=== PATIENT | female | born 1975 | race Caucasian/White ===

== ENCOUNTER 2017-10-26 03:08 | Inpatient (IN) ==
[2017-10-26] MEDS ORDERED: Sod Chloride 0.9% Inj 1,000 ML IV.SIG ONE (03:57)
[2017-10-26] MEDS ORDERED: Morphine Inj 4 MG/ML Vial IV.PUSH ONE ×2 (03:59→05:41)
[2017-10-26 04:37] LABS: Baso # (Auto) 0.1 th/mm3 (0.0-0.2); Baso % (Auto) 0.4 % (0.0-2.0); Eos # (Auto) 0.4 th/mm3 (0.0-0.4); Eos % (Auto) 1.8 % (0.0-4.0); Hematocrit 44.3 % (35.0-46.0); Lymph % (Auto) 14.7 % (9.0-44.0); Mean Corpuscular Hemoglobin 30.5 pg (27.0-34.0); Mean Corpuscular Volume 89.9 fL (80.0-100.0); Mean Platelet Volume 8.5 fL (7.0-11.0); Mono # (Auto) 1.1 th/mm3 (0.0-0.9); Mono % (Auto) 5.5 % (0.0-8.0); Neut # (Auto) 15.7 th/mm3 (1.8-7.7); Neut % (Auto) 77.6 % (16.0-70.0); Platelet Count 377 th/mm3 (150-450); Red Blood Count 4.93 mil/mm3 (4.00-5.30); Red Cell Distribution Width 13.4 % (11.6-17.2); White Blood Count 20.2 th/mm3 (4.0-11.0)
--- NOTE | 2017-10-26 05:00 | XR ---
EXAM DATE: 10/26/2017 4:19 AM EDT AGE/SEX: 42 years / Female INDICATIONS: Abdominal pain for three hours. CLINICAL DATA: This is the patient's initial encounter. Patient reports that signs and symptoms have been present for 1 day and indicates a pain score of 0/10. MEDICAL/SURGICAL HISTORY: Hypertension. None. COMPARISON: No prior exams available for comparison. FINDINGS: A single AP view of the chest demonstrates the lungs to be symmetrically aerated without evidence of mass, infiltrate or effusion. The cardiomediastinal contours are unremarkable. Osseous structures a re intact. CONCLUSION: No acute cardiopulmonary process. Electronically signed by: Jeff Piper MD 10/26/2017 4:59 AM EDT
[2017-10-26 05:05] LABS: Alkaline Phosphatase 56 U/L (45-117); Total Protein 7.4 g/dL (6.4-8.2)
[2017-10-26 05:27] LABS: Alanine Aminotransferase 19 U/L (10-53); Anion Gap 11 meq/L (5-15); Aspartate Aminotransferase 24 U/L (15-37); Blood Urea Nitrogen 12 mg/dL (7-18); Calcium 9.4 mg/dL (8.5-10.1); Carbon Dioxide 27.1 meq/L (21.0-32.0); Chloride 105 meq/L (98-107); Glomerular Filtration Rate 64 mL/min (>89); Glucose,Random 92 mg/dL (74-106); Lipase 130 U/L (73-393); Sodium 143 meq/L (136-145)
[2017-10-26 05:47] LABS: Potassium 4.2 meq/L (3.5-5.1)
--- NOTE | 2017-10-26 05:56 | ED ---
HPI General Chief Complaint: Abdominal Pain Stated Complaint: abd pain Time Seen by Provider: 10/26/17 03:57 Source: patient Mode of arrival: ambulatory Limitations: no limitations History of Present Illness HPI narrative: 42-year-old female presents to the emergency department complaint of severe abdominal pain. Symptoms began this evening just prior to arrival to the emergency department. Patient's been very nauseated upon arrival to the emergency department large episode of emesis of stomach contents no hematemesis or coffee-ground emesis. No diarrhea. No fever chills. Has history of hypertension but no other chronic medical conditions according to the patient except for depression. Patient rates pain 8/10 intensity previously 10/10 in intensity. Patient unable to identify exacerbating or alleviating factors. ate same meal as the patient is asymptomatic. Related Data Home Medications Medication Instructions Recorded Confirmed duloxetine [Cymbalta] 20 mg PO BID 10/26/17 10/26/17 Allergies Allergy/AdvReac Type Severity Reaction Status Date / Time No Known Allergies Allergy Unverified 10/26/17 03:31 Review of Systems ROS: all other systems reviewed are negative [facility] Medical History Medical History Carpal tunnel syndrome (Acute) Patient denies medical problems (Acute) Surgical History Surgical History H/O tubal ligation (Acute) Social History Social History Second Hand Smoke Exposure: Yes Smoking Status: Current every day smoker Tobacco Type: Cigarettes How Often Do You Have a Drink Containing Alcohol: 2 to 3 times a week Recent Out of Country Travel within the Last 8 Weeks: No Substance Abuse Detail Marijuana: Substance Use Status: Active Route Used Substance Abuse: Inhalation Reason for Use: Calm Down and Feels Good Immunization History Tetanus Immunization: >5 Years Hx Influenza Vaccine This Season: No Exam Narrative Exam Narrative: GENERAL: Well-nourished, well-developed patient. SKIN: Focused skin assessment warm/dry. HEAD: Normocephalic. EYES: No scleral icterus. No injection or drainage. NECK: Supple, trachea midline. No JVD or lymphadenopathy. CARDIOVASCULAR: Regular rate and rhythm without murmurs, gallops, or rubs. RESPIRATORY: Breath sounds equal bilaterally. No accessory muscle use. GASTROINTESTINAL: Abdomen soft, reproducible epigastric tenderness to palpation without guarding or rebound, nondistended. MUSCULOSKELETAL: No cyanosis, or edema. BACK: Nontender without obvious deformity. No CVA tenderness. Course Initial Documented Vital Signs Temperature 97.7 F 10/26/17 03:27 Pulse Rate 80 10/26/17 03:27 Respiratory Rate 22 10/26/17 03:27 Blood Pressure 129/76 10/26/17 03:27 Pulse Oximetry 99 10/26/17 03:27 Last Documented Vital Signs Temperature 97.7 F 10/26/17 03:27 Pulse Rate 82 10/26/17 03:31 Respiratory Rate 22 10/26/17 03:27 Blood Pressure 127/76 10/26/17 03:31 Pulse Oximetry 99 10/26/17 03:27 Medical Decision Making MDM Narrative Medical decision making narrative: 42-year-old female with abdominal pain vomiting sudden onset presents for further evaluation history of hypertension placed on conveyor monitor with continuous pulse oximetry IV access obtained specimens collected and sent for resulting and CT imaging study ordered White count 20,000 patient's pain is still persistent after morphine sulfate 4 mg IV nausea has improved after Zofran 4 mg IV Patient given additional liter of normal saline CT abdomen pelvis is consistent with partial small bowel obstruction versus enteritis no evidence for acute appendicitis or other acute findings small amount of free fluid in the pelvis nonspecific. No free air. Labs and imaging results discussed with patient and family at bedside plan for observation admission versus inpatient admission based on patient's response to conservative management Patient's case discussed with on-call medicine physician, Dr Rangel, for admission. Medical Screen Exam Complete: Yes Emergency Medical Condition: Yes Lab Data Lab results reviewed: Yes I reviewed the patient's lab results. Result diagrams: 10/26/17 04:00 10/26/17 04:00 Lab Results 10/26/17 10/26/17 Range/Units 04:00 04:00 WBC 20.2 H (4.0-11.0) th/mm3 RBC 4.93 (4.00-5.30) mil/mm3 Hgb 15.0 (11.6-15.3) gm/dL Hct 44.3 (35.0-46.0) % MCV 89.9 (80.0-100.0) fL MCH 30.5 (27.0-34.0) pg MCHC 34.0 (32.0-36.0) % RDW 13.4 (11.6-17.2) % Plt Count 377 (150-450) th/mm3 MPV 8.5 (7.0-11.0) fL Neut % (Auto) 77.6 H (16.0-70.0) % Lymph % (Auto) 14.7 (9.0-44.0) % [place] % (Auto) 5.5 (0.0-8.0) % Eos % (Auto) 1.8 (0.0-4.0) % Baso % (Auto) 0.4 (0.0-2.0) % Neut # (Auto) 15.7 H (1.8-7.7) th/mm3 Lymph # (Auto) 3.0 (1.0-4.8) th/mm3 [place] # (Auto) 1.1 H (0.0-0.9) th/mm3 Eos # (Auto) 0.4 (0.0-0.4) th/mm3 Baso # (Auto) 0.1 (0.0-0.2) th/mm3 WBC Differential . Differential Comment Auto diff final Sodium 143 (136-145) meq/L Potassium 4.2 (3.5-5.1) meq/L Chloride 105 (98-107) meq/L Carbon Dioxide 27.1 (21.0-32.0) meq/L Anion Gap 11 (5-15) meq/L BUN 12 (7-18) mg/dL Creatinine 0.95 (0.50-1.00) mg/dL Estimated GFR 64 L (>89) mL/min Random Glucose 92 (74-106) mg/dL Calcium 9.4 (8.5-10.1) mg/dL Total Bilirubin 0.4 (0.2-1.0) mg/dL AST 24 (15-37) U/L ALT 19 (10-53) U/L Alkaline Phosphatase 56 (45-117) U/L Troponin I Less than 0.02 L (0.02-0.05) ng/mL Total Protein 7.4 (6.4-8.2) g/dL Albumin 4.0 (3.4-5.0) g/dL Lipase 130 (73-393) U/L Imaging Data Radiologist's impression: Abdomen/Pelvis CT 10/26/17 03:57 CONCLUSION: 1. There is some fluid distention of the more proximal small bowel loops with a long segment transition in the region of the right and central abdomen. No discrete mass lesion. Findings could represent a focal enteritis with partial small bowel obstruction. 2. Small amount of free fluid in the deep pelvis. Again, nonspecific and could be related to the phase of menses. 3. Appendix is clearly identified and is radiographically normal Chest X-Ray 10/26/17 03:57 CONCLUSION: No acute cardiopulmonary process. Discharge Plan Discharge Disposition Patient Disposition: 30 Still Patient Discharge Condition Condition: Stable Discharge Details Diagnosis: Partial small bowel obstruction, Enteritis Physicians Team ED Provider: Clara Gage Rxs /Orders / Referrals /Forms Prescriptions: No Action duloxetine [Cymbalta] 20 mg Capsule,Delayed Release(Dr/Ec) 20 mg PO BID RF: 0 Status ED Status: With Doctor
--- NOTE | 2017-10-26 06:18 | CT ---
EXAM DATE: 10/26/2017 6:07 AM EDT AGE/SEX: 42 years / Female INDICATIONS: Mid abdominal pain. CLINICAL DATA: This is the patient's initial encounter. Patient reports that signs and symptoms have been present for 1 day and indicates a pain score of 7/10. MEDICAL/SURGICAL HISTORY: None. Tubal ligation. ORAL CONTRAST: No oral contrast ingested. RADIATION DOSE: 10.76 CTDI (mGy) COMPARISON: No prior exams available for comparison. TECHNIQUE: Multiple contiguous axial images were obtained through the abdomen and pelvis following b olus infusion of 95 ml Omnipaque 350 (iohexol) nonionic water-soluble contrast as a single exam dos e. No oral contrast ingested. Using automated exposure control and adjustment of the mA and/or kV ac cording to patient size, radiation dose was kept as low as reasonably achievable to obtain optimal di agnostic quality images. DICOM format image data is available electronically for review and comparis on. FINDINGS: Lower Lungs: The visualized lower lungs are clear. Liver: The liver has a homogeneous density without space-occupying lesion. There is no dilation of th e biliary tree. Spleen: Homogeneous density without enlargement. Pancreas: Unremarkable without mass or calcification. Kidneys: Normal in size and shape. No evidence of mass or hydronephrosis. Adrenal Glands: Unremarkable. Aorta: The aorta and proximal iliac vessels are grossly unremarkable without aneurysmal dilation. Bowel/Mesentery: There is some fluid distention of more proximal small bowel loops with a regional t ransition in the right midabdomen. Bowel distal to this area is completely decompressed. A few divert icula in the descending and sigmoid portions of the colon without diverticulitis. Small amount of janna e fluid in the deep pelvis, right and left. Appendix is identified and is radiographically normal. Abdominal Wall: Intact. Retroperitoneum: No evidence of adenopathy in the retrocrural, para-aortic, or deep pelvic regions. Bladder: Contours are smooth. Reproductive Organs: Some prominence of the endometrial stripe which could be related to the phase o f menses Inguinal: The inguinal region is unremarkable without evidence of adenopathy. Bony Structures: Unremarkable. Post Contrast: No abnormal areas of enhancement seen. CONCLUSION: 1. There is some fluid distention of the more proximal small bowel loops with a long segment transit ion in the region of the right and central abdomen. No discrete mass lesion. Findings could represent a focal enteritis with partial small bowel obstruction. 2. Small amount of free fluid in the deep pelvis. Again, nonspecific and could be related to the pha se of menses. 3. Appendix is clearly identified and is radiographically normal Electronically signed by: Jeff Piper MD 10/26/2017 6:16 AM EDT
[2017-10-26] MEDS ORDERED: Pantoprazole Inj 40 MG Vial IV.PUSH ONE (06:24)
[2017-10-26] MEDS ORDERED: Sod Chloride 0.9% Inj 1,000 ML IV.SIG SCH (06:30)
[2017-10-26] MEDS ORDERED: Bisacodyl 10 MG Supp RECTAL PRN (06:43)
[2017-10-26] MEDS: Sod Chloride 0.9% Inj 1,000 ML IV.CONT SCH ×2 (06:50→16:29)
[2017-10-26] MEDS: Piperacil/Tazo 4.5 GM Premix 4.5 GM/100 ML BAG IV.SIG SCH ×2 (06:50→12:16)
[2017-10-26] MEDS ORDERED: Morphine Inj 4 MG/ML Vial IV.PUSH PRN (07:00)
[2017-10-26 08:15] LABS: Amorphous Sediment,Urine Moderate /hpf; Bacteria,Urine Few /hpf; Bilirubin,Urine Negative (Negative); Clarity,Urine Cloudy (Clear); Color,Urine Yellow (Yellw/Straw); Glucose,Urine (UA) Negative (Negative); Leukocyte Esterase,Urine Negative (Negative); Nitrite,Urine Negative (Negative); Specific Gravity,Urine 1.049 (1.002-1.035); Squamous Epithelial Cell,Urine 2 /hpf (0-5)
[2017-10-26] MEDS ORDERED: Naloxone Inj 0.4 MG/ML Vial IV.PUSH PRN (09:20)
--- NOTE | 2017-10-26 09:32 | P.HPIM ---
History of Present Illness Primary Care Physician: Pablito Arora History of Present Illness: 42-year-old female who presents with constant nonradiating epigastric pain nausea and nonbloody rlx-svaora-nxxian vomiting since 1 AM she denies any chest pain, shortness of breath, fevers, lightheadedness, dizziness, dysuria. She says she has felt cold this morning however. Inpatient Certification: I certify that the inpatient services were ordered in accordance with Medicare regulations governing the order. This includes certification that hospital inpatient services are reasonable and necessary and in the case of services not specified as inpatient-only under 42 CFR 419.22(n), that they are appropriately provided as inpatient services in accordance to with the 2-midnight benchmark under 43 CFR 412.3(e) Estimated Total Length of Stay (Days): 2 Plans for Post Hospital Care: Not yet determined Review of Systems Patient denies SI. All other systems reviewed negative except as stated in HPI PMFSH - History History Provided By: Patient - Medical History Medical History: Medical History (Last Reviewed 10/26/17 @ 05:57 by Clara Gage MD) Carpal tunnel syndrome Patient denies medical problems - Surgical History Surgical History: Surgical History (Last Reviewed 10/26/17 @ 05:57 by Clara Gage MD) H/O tubal ligation - Family History Family History: Family History (Last Updated 10/26/17 @ 09:28 by Gigi Hager MD) Father Cancer Mother Healthy adult - Tobacco History Second Hand Smoke Exposure: Yes Tobacco Use In Past 30 Days: Yes Smoking Status: Current every day smoker Tobacco Type: Cigarettes - Alcohol History How Often Do You Have a Drink Containing Alcohol: 2 to 3 times a week - Substance Use Type Marijuana Status: Active Route Used: Inhalation Reason for Use: Calm Down, Feels Good - Travel History Recent Travel Out of the Country Within the Last 8 Weeks: No - Immunization History Tetanus Immunization: >5 Years Hx Influenza Vaccine This Season: No Medications and Allergies Active Medications: Active Medications Hydrocodone Bitart/Acetaminophen ([place] 5/325) 1 tab PO Q4H PRN PRN Reason: PAIN SCALE 3 TO 5 Hydrocodone Bitart/Acetaminophen ([place] 7.5/325) 1 tab PO Q4H PRN PRN Reason: PAIN SCALE 6 TO 10 Al Hydroxide/Mg Hydroxide (Milk Of Chapis Liq) 30 ml PO Q12H PRN PRN Reason: Mild Constipation Bisacodyl (Dulcolax Supp) 10 mg RECTAL DAILY PRN PRN Reason: SEVERE CONSITIPATION Sodium Chloride (Ns Inj) 1,000 mls @ 0 mls/hr IV.SIG BOLUS NICK Sodium Chloride (Ns Inj) 1,000 mls @ 100 mls/hr IV.CONT .Q10H NICK Last Admin: 10/26/17 06:50 Dose: 100 mls/hr Piperacillin/Tazobactam/Dextrose (Zosyn 4.5 Gm Premix) 4.5 gm in 100 mls @ 200 mls/hr IV.SIG Q6H NICK Last Infusion: 10/26/17 07:20 Dose: Infused Lactulose (Lactulose Liq) 30 ml PO DAILY PRN PRN Reason: SEVERE CONSITIPATION Metoclopramide HCl (Reglan Inj) 5 mg IV.PUSH Q6HR PRN; Protocol PRN Reason: NAUSEA OR VOMITING Last Admin: 10/26/17 07:12 Dose: 5 mg Morphine Sulfate (Morphine Inj) 2 mg IV.PUSH Q3H PRN PRN Reason: PAIN 6-10;IF UNABLE TO TAKE PO Morphine Sulfate (Morphine Inj) 2 mg IV.PUSH Q1H PRN PRN Reason: Pain Scale 7-10 (Intractable) Naloxone HCl (Narcan Inj) 0.4 mg IV.PUSH UNSCH PRN PRN Reason: SEE LABEL COMMENTS Ondansetron HCl (Zofran Inj) 4 mg IV.PUSH Q6H PRN PRN Reason: NAUSEA OR VOMITING Senna/Docusate Sodium (Darlene-Colace) 1 tab PO BID [facility] Sennosides (Senokot) 17.2 mg PO Q12H PRN PRN Reason: Moderate Constipation Sodium Chloride (Ns Flush) 2 ml IV.FLUSH PRN PRN PRN Reason: FLUSH AFTER USING IV ACCESS Allergies Allergy/AdvReac Type Severity Reaction Status Date / Time No Known Allergies Allergy Unverified 10/26/17 03:31 Home Medications Medication Instructions Recorded Confirmed Type duloxetine [Cymbalta] 20 mg PO BID 10/26/17 10/26/17 History Exam Vital signs: Vital Signs 10/26/17 03:27 10/26/17 03:31 10/26/17 06:47 Temperature 97.7 F Pulse Rate 80 82 Respiratory Rate 22 19 Blood Pressure 129/76 127/76 147/78 H Pulse Oximetry 99 Intake & Output 10/25/17 10/26/17 10/26/17 18:59 06:59 18:59 Intake Total 0 / 0 1100 / 1100 Balance 0 / 0 1100 / 1100 Weight 107.501 kg Intake: IV 0 / 0 1100 / 1100 Zosyn 4.5 GM Premix 4.5 gm In 100 / 100 100 ml @ 200 mls/hr IV.SIG Q6H NICK Rx#:[id number] NS Inj 1,000 ML @ Wide Open IV. 0 / 0 1000 / 1000 SIG BOLUS ONE Rx#:[id number] Results - Labs CBC & Chem 7: 10/26/17 04:00 10/26/17 04:00 Labs: Short CBC 10/26/17 Range/Units 04:00 WBC 20.2 H (4.0-11.0) th/mm3 Hgb 15.0 (11.6-15.3) gm/dL Hct 44.3 (35.0-46.0) % Plt Count 377 (150-450) th/mm3 BMP 10/26/17 04:00 Sodium 143 Potassium 4.2 Chloride 105 Carbon Dioxide 27.1 BUN 12 Creatinine 0.95 Calcium 9.4 Cardiac Enzymes 10/26/17 Range/Units 04:00 Troponin I Less than 0.02 L (0.02-0.05) ng/mL Liver Function 10/26/17 Range/Units 04:00 Total Bilirubin 0.4 (0.2-1.0) mg/dL AST 24 (15-37) U/L ALT 19 (10-53) U/L Alkaline Phosphatase 56 (45-117) U/L Albumin 4.0 (3.4-5.0) g/dL Urine 10/26/17 Range/Units 07:44 Urine Color Yellow (Yellw/Straw) Urine Clarity Cloudy H (Clear) Urine pH 7.0 (5.0-8.5) Ur Specific [place] 1.049 H (1.002-1.035) Urine Protein Negative (Neg-Trace) mg/dL Urine Glucose (UA) Negative (Negative) mg/dL - Imaging Impressions Abdomen/Pelvis CT 10/26/17 03:57 CONCLUSION: 1. There is some fluid distention of the more proximal small bowel loops with a long segment transition in the region of the right and central abdomen. No discrete mass lesion. Findings could represent a focal enteritis with partial small bowel obstruction. 2. Small amount of free fluid in the deep pelvis. Again, nonspecific and could be related to the phase of menses. 3. Appendix is clearly identified and is radiographically normal Chest X-Ray 10/26/17 03:57 CONCLUSION: No acute cardiopulmonary process. Caprini VTE Risk Assessment Caprini VTE Risk Assessment: No/Low Risk (score <= 1) Caprini Risk Assessment Model: Point Value = 1 Point Value = 2 Point Value = 3 Point Value = 5 Age 41-60 Minor surgery BMI > 25 kg/m2 Swollen legs Varicose veins or History of unexplained or recurrent spontaneous Oral contraceptives or hormone replacement Sepsis (< 1 month) Serious lung disease, including pneumonia (< 1 month) Abnormal pulmonary function Acute myocardial infarction Congestive heart failure (< 1 month) History of inflammatory bowel disease Medical patient at bed rest Age 61-74 Arthroscopic surgery Major open surgery (> 45 min) Laparoscopic surgery (> 45 min) Malignancy Confined to bed (> 72 hours) Immobilizing plaster cast Central venous access Age >= 75 History of VTE Family history of VTE Factor V Leiden Prothrombin [id number] Lupus anticoagulant Anticardiolipin antibodies Elevated serum homocysteine Heparin-induced thrombocytopenia Other congenital or acquired thrombophilia Stroke (< 1 month) Elective arthroplasty Hip, pelvis, or leg fracture Acute spinal cord injury (< 1 month) Prophylaxis Regimen: Total Risk Factor Score Risk Level Prophylaxis Regimen 0-1 Low Early ambulation 2 Moderate Order ONE of the following: *Sequential Compression Device (SCD) *Heparin 5000 units SQ BID 3-4 Higher Order ONE of the following medications: *Heparin 5000 units SQ TID *Enoxaparin/Lovenox 40 mg SQ daily (WT < 150 kg, CrCl > 30 mL/min) *Enoxaparin/Lovenox 30 mg SQ daily (WT < 150 kg, CrCl > 10-29 mL/min) *Enoxaparin/Lovenox 30 mg SQ BID (WT < 150 kg, CrCl > 30 mL/min) AND/OR *Sequential Compression Device (SCD) 5 or more Highest Order ONE of the following medications: *Heparin 5000 units SQ TID (Preferred with Epidurals) *Enoxaparin/Lovenox 40 mg SQ daily (WT < 150 kg, CrCl > 30 mL/min) *Enoxaparin/Lovenox 30 mg SQ daily (WT < 150 kg, CrCl > 10-29 mL/min) *Enoxaparin/Lovenox 30 mg SQ BID (WT < 150 kg, CrCl > 30 mL/min) AND *Sequential Compression Device (SCD) Assessment and Plan - Plan //Gastroenteritis //Possible partial small bowel obstruction. -With leukocytosis of 20, epigastric pain. Lipase within normal limits. = Troponin 1 negative. = This is unlikely cardiac but will trend troponins. = CT abdomen personally interpreted shows fluid distention of the more proximal small bowel loops with long segment transition in the region of the right and central abdomen. Could represent a focal enteritis with partial small bowel obstruction. //Tobacco abuse. Cessation counseling provided. Discussed Condition With: Patient, nurse
[2017-10-26] MEDS: Senna/Docusate Sodium 8.6/50 MG Tablet PO SCH ×2 (09:35→20:01)
[2017-10-26] MEDS: Morphine Inj 4 MG/ML Vial IV.PUSH PRN ×4 (09:35→15:29)
[2017-10-26 10:17] LABS: Amphetamine Screen,Urine Neg (Neg); Barbiturate Screen,Urine Neg (Neg); Cannabinoid Screen,Urine Pos (Neg); Cocaine Screen,Urine Neg (Neg)
[2017-10-26 10:40] LABS: Opiate Screen,Urine Pos (Neg)
--- NOTE | 2017-10-26 13:14 | ECG ---
Date Performed: 10/26/2017 Time Performed: 06:22:39 PTAGE: 42 years EKG: Sinus rhythm NORMAL ECG NO PREVIOUS TRACING DOCTOR: Asaf Pimentel Interpretating Date/Time 10/26/2017 13:10:28
--- NOTE | 2017-10-26 15:20 | MB ---
cc: Parveen Hahn MD DATE: 10/26/2017 REQUESTING PHYSICIAN: Dr. Gigi Hager. REASON FOR CONSULTATION: Enteritis, possible SBO. HISTORY OF PRESENT ILLNESS: The patient is a 42-year-old female who was visiting [facility] for her anniversary when she developed severe diffuse abdominal pain and vomiting at 1 a.m. this morning. She presented to the emergency department and underwent evaluation. CT scan did show areas of dilated small bowel as well as thickening as well as a possibility of a transition point. The patient did have leukocytosis of 20,000. Currently, the patient has resolution of her vomiting. She does not have an NG tube. She complains of diffuse, crampy abdominal pain. This is nonspecific. The pain does not radiate or associated with any symptoms. She has no nausea, vomiting, or diarrhea at this time. She has not had diarrhea previously. She denies fever, chills, or night sweats. She never had pain like this prior. She ate some abnormal food for her, but nothing that she considered high risk of an infection. She has no other sick contacts, and her who is traveling with has not been sick. REVIEW OF SYSTEMS: A 12-point review of systems is conducted with the patient and is negative except for the pertinent positives mentioned above in history of present illness. PAST MEDICAL HISTORY: None. PAST SURGICAL HISTORY: 1. Carpal tunnel surgery. 2. Tubal ligation. ALLERGIES: NO KNOWN DRUG ALLERGIES. MEDICATIONS: No home medications. FAMILY HISTORY: Reviewed, noncontributory to the process. SOCIAL HISTORY: The patient does smoke cigarettes. She does occasionally use alcohol and marijuana. PHYSICAL EXAMINATION: VITAL SIGNS: Temperature 97.2 degrees, pulse 54, blood pressure 121/60. GENERAL: The patient is a well-developed, well-nourished, female, in no acute distress. HEENT: Head is normocephalic, atraumatic. Pupils are round, reactive to light. Sclerae are anicteric. Oral cavity is clear. NECK: Supple. No JVD. LUNGS: Breath sounds present bilaterally, nonlabored breathing pattern. HEART: Regular rate and rhythm. No murmurs. ABDOMEN: Minimally distended and has normal bowel sounds. No organomegaly. No ascites. No hernias. No surgical scars. BACK: No CVA tenderness. EXTREMITIES: No clubbing, cyanosis, or edema. NEUROLOGIC: The patient is alert and oriented x3. Nonfocal peripheral exam. Cranial nerves 2-12 are grossly intact. Mood, judgment, and insight are intact. LABORATORY VALUES: White blood cell count is 20,000. Liver function tests are within normal limits. Urinalysis shows few bacteria. IMAGING: CT scan shows a possible ileus versus small bowel obstruction and possible enteritis. ASSESSMENT AND PLAN: The patient is a 42-year-old female with abdominal pain and vomiting. Clinically, I feel the patient could have a low-grade partial bowel obstruction, which is aggravated by her diet versus a possible intoxication or enteric infection from food exposure. I do favor likely a gastroenteritis, either viral, bacterial, or toxin exposure. I discussed this with the patient and recommend clear liquids, IV fluids, pain and nausea medicines as needed, as well as continued observation for 24 hours minimum. The patient will need stool studies if she develops diarrhea. We will change the patient to Cipro and Flagyl and may need discharge home with Cipro and Flagyl prescription if she improves to treat any potential infection empirically. If the patient has worsening symptoms, recurrent nausea or vomiting, if it is bilious, she will need an NG tube. Thank you very much for this consultation. We will follow along with the patient. Parveen Hahn MD AWG/aria , 02:02 PM , 02:12 PM
[2017-10-26] MEDS: Ciprofloxacin 400 MG/200 ML 400 MG/200 ML PIGGYBACK IV.SIG SCH (15:22)
--- NOTE | 2017-10-26 20:30 | ECG ---
Date Performed: 10/26/2017 Time Performed: 10:09:42 PTAGE: 42 years EKG: Sinus rhythm NORMAL ECG PREVIOUS TRACING : 10/26/2017 06.22 Since the previous tracing, no significant change noted DOCTOR: Diana Partida Interpretating Date/Time 10/26/2017 20:29:29
[2017-10-27] MEDS: Ciprofloxacin 400 MG/200 ML 400 MG/200 ML PIGGYBACK IV.SIG SCH ×2 (02:21→15:09)
[2017-10-27] MEDS: Sod Chloride 0.9% Inj 1,000 ML IV.CONT SCH ×2 (02:27→16:36)
[2017-10-27 05:53] LABS: Alanine Aminotransferase 14 U/L (10-53); Albumin 3.1 g/dL (3.4-5.0); Alkaline Phosphatase 48 U/L (45-117); Anion Gap 8 meq/L (5-15); Aspartate Aminotransferase 14 U/L (15-37); Blood Urea Nitrogen 8 mg/dL (7-18); Carbon Dioxide 25.2 meq/L (21.0-32.0); Chloride 110 meq/L (98-107); Glomerular Filtration Rate 87 mL/min (>89); Glucose,Random 99 mg/dL (74-106); Potassium 3.7 meq/L (3.5-5.1); Sodium 143 meq/L (136-145); Total Protein 5.8 g/dL (6.4-8.2)
[2017-10-27 07:01] LABS: Baso % (Auto) 0.3 % (0.0-2.0); Eos # (Auto) 0.3 th/mm3 (0.0-0.4); Eos % (Auto) 2.3 % (0.0-4.0); Hematocrit 38.5 % (35.0-46.0); Hemoglobin 12.5 gm/dL (11.6-15.3); Lymph # (Auto) 3.7 th/mm3 (1.0-4.8); Lymph % (Auto) 29.5 % (9.0-44.0); Mean Corpuscular HGB Conc 32.6 % (32.0-36.0); Mean Corpuscular Hemoglobin 30.7 pg (27.0-34.0); Mean Corpuscular Volume 94.2 fL (80.0-100.0); Mean Platelet Volume 8.3 fL (7.0-11.0); Mono # (Auto) 0.9 th/mm3 (0.0-0.9); Mono % (Auto) 7.4 % (0.0-8.0); Neut # (Auto) 7.6 th/mm3 (1.8-7.7); Neut % (Auto) 60.5 % (16.0-70.0); Platelet Count 297 th/mm3 (150-450); Red Blood Count 4.09 mil/mm3 (4.00-5.30); Red Cell Distribution Width 13.5 % (11.6-17.2); White Blood Count 12.5 th/mm3 (4.0-11.0)
[2017-10-27] MEDS: Senna/Docusate Sodium 8.6/50 MG Tablet PO SCH (09:06)
--- NOTE | 2017-10-27 11:24 | P.PNGS ---
Subjective Interval history: Resting in bed coloring Feeling better; Wants to eat; at the bedside Physical Exam Vital signs: Vital Signs 10/26/17 12:00 10/26/17 15:02 10/26/17 20:00 Temperature 97.2 F L 98.0 F 98.2 F Pulse Rate 54 L 65 77 Respiratory Rate 18 19 18 Blood Pressure 121/60 118/80 109/60 Pulse Oximetry 98 97 99 10/27/17 00:00 10/27/17 04:00 10/27/17 08:00 Temperature 97.7 F 98 F 98.1 F Pulse Rate 68 65 68 Respiratory Rate 18 18 18 Blood Pressure 130/63 110/67 138/81 Pulse Oximetry 99 97 99 Intake & Output 10/26/17 10/27/17 10/27/17 18:59 06:59 18:59 Intake Total 4200 / 4200 300 / 300 Balance 4200 / 4200 300 / 300 Intake: IV 3600 / 3600 300 / 300 NS Inj 1,000 ML @ 100 mls/hr IV 2100 / 2100 .CONT .Q10H NICK Rx#:[id number] Cipro 400 MG/200 ML Inj 400 mg 200 / 200 200 / 200 In 200 ml @ 200 mls/hr IV.SIG Q12H NICK Rx#:[id number] Zosyn 4.5 GM Premix 4.5 gm In 200 / 200 100 ml @ 200 mls/hr IV.SIG Q6H NICK Rx#:[id number] NS Inj 1,000 ML @ Wide Open IV. 1000 / 1000 SIG BOLUS ONE Rx#:[id number] Flagyl 500 MG Inj 100 ML @ 100 100 / 100 100 / 100 mls/hr IV.SIG Q8H NICK Rx#: [id number] Oral 600 / 600 Other: # Voids 2 Date of Last Bowel Movement 10/25/17 10/25/17 10/27/17 Narrative: Alert and awake Cardio: RRR Resp: CTAB Abd: soft non tender Assessment and Plan - Assessment (1) Enteritis Code(s): K52.9 - Noninfective gastroenteritis and colitis, unspecified Status : Acute Plan: 42 year old female with abdominal pain; enteritis vs ileus vs SBO -Favor enteritis at this time -Symptoms resolved -+BM -Pain now resolved -Advance to regular diet---encourage small more frequent bland meals for the next few days -Discussed with ANGELICA Goldstein and BASIA Sanchez - Attending Attestation The exam, history, and the medical decision-making described in the above note were completed with the assistance of the mid-level provider. I reviewed and agree with the findings presented. I attest that I had a [id number] encounter with the patient on the same day, and personally performed and documented my assessment and findings in the medical record. 42yo female with likely gastroenteritis, improved overnight no SBO can DC from surgery standpoint rec ABX for 1-2 weeks
--- NOTE | 2017-10-27 11:48 | P.PN ---
Subjective Interval history: Patient seen with at bedside reports feeling much better had formed BM this AM no longer having N/V or abd pain Physical Exam Vital signs: Vital Signs 10/26/17 12:00 10/26/17 15:02 10/26/17 20:00 Temperature 97.2 F L 98.0 F 98.2 F Pulse Rate 54 L 65 77 Respiratory Rate 18 19 18 Blood Pressure 121/60 118/80 109/60 Pulse Oximetry 98 97 99 10/27/17 00:00 10/27/17 04:00 10/27/17 08:00 Temperature 97.7 F 98 F 98.1 F Pulse Rate 68 65 68 Respiratory Rate 18 18 18 Blood Pressure 130/63 110/67 138/81 Pulse Oximetry 99 97 99 Intake & Output 10/26/17 10/27/17 10/27/17 18:59 06:59 18:59 Intake Total 4200 / 4200 300 / 300 Balance 4200 / 4200 300 / 300 Intake: IV 3600 / 3600 300 / 300 NS Inj 1,000 ML @ 100 mls/hr IV 2100 / 2100 .CONT .Q10H NICK Rx#:[id number] Cipro 400 MG/200 ML Inj 400 mg 200 / 200 200 / 200 In 200 ml @ 200 mls/hr IV.SIG Q12H NICK Rx#:[id number] Zosyn 4.5 GM Premix 4.5 gm In 200 / 200 100 ml @ 200 mls/hr IV.SIG Q6H NICK Rx#:[id number] NS Inj 1,000 ML @ Wide Open IV. 1000 / 1000 SIG BOLUS ONE Rx#:[id number] Flagyl 500 MG Inj 100 ML @ 100 100 / 100 100 / 100 mls/hr IV.SIG Q8H NICK Rx#: [id number] Oral 600 / 600 Other: # Voids 2 Date of Last Bowel Movement 10/25/17 10/25/17 10/27/17 Narrative: GENERAL: This is a well-nourished, well-developed patient, in no apparent distress. CARDIOVASCULAR: Regular rate and rhythm RESPIRATORY: Clear to auscultation. Breath sounds equal bilaterally. GASTROINTESTINAL: Abdomen soft, non-tender, nondistended. Normal active bowel sounds MUSCULOSKELETAL: Extremities without clubbing, cyanosis, or edema. NEURO: Alert & Oriented x4 to person, place, time, situation. Moves all ext x4 Results - Labs CBC & Chem 7: 10/27/17 03:58 10/27/17 03:58 Laboratory Results - last 24 hr 10/26/17 10/26/17 10/26/17 10:19 18:02 23:55 WBC RBC Hgb Hct MCV MCH MCHC RDW Plt Count MPV Neut % (Auto) Lymph % (Auto) [place] % (Auto) Eos % (Auto) Baso % (Auto) Neut # (Auto) Lymph # (Auto) [place] # (Auto) Eos # (Auto) Baso # (Auto) WBC Differential Differential Comment Hematology Comments Sodium Potassium Chloride Carbon Dioxide Anion Gap BUN Creatinine Estimated GFR Random Glucose Calcium Total Bilirubin AST ALT Alkaline Phosphatase Troponin I Less than 0.02 L Less than 0.02 L Total Protein Albumin Beta HCG, Qual Less than 1.0 10/27/17 10/27/17 03:58 03:58 WBC 12.5 H RBC 4.09 Hgb 12.5 D Hct 38.5 MCV 94.2 D MCH 30.7 MCHC 32.6 RDW 13.5 Plt Count 297 MPV 8.3 Neut % (Auto) 60.5 Lymph % (Auto) 29.5 [place] % (Auto) 7.4 Eos % (Auto) 2.3 Baso % (Auto) 0.3 Neut # (Auto) 7.6 Lymph # (Auto) 3.7 [place] # (Auto) 0.9 Eos # (Auto) 0.3 Baso # (Auto) 0.0 WBC Differential . Differential Comment Auto diff final Hematology Comments Sodium 143 Potassium 3.7 Chloride 110 H Carbon Dioxide 25.2 Anion Gap 8 BUN 8 Creatinine 0.73 Estimated GFR 87 L Random Glucose 99 Calcium 8.0 L D Total Bilirubin 0.4 AST 14 L ALT 14 Alkaline Phosphatase 48 Troponin I Total Protein 5.8 L D Albumin 3.1 L D Beta HCG, Qual Assessment and Plan - Plan //Gastroenteritis //Possible partial small bowel obstruction. -With leukocytosis of 20 on admission -> 12.5 (10/27) = Troponin 3 negative. = CT abdomen shows fluid distention of the more proximal small bowel loops with long segment transition in the region of the right and central abdomen. Could represent a focal enteritis with partial small bowel obstruction. = general surgery consulted, appreciate assistance. Discussed case with Renetta STROUD cleared for DC later today if patient able to tolerate PO intake //Tobacco abuse. Cessation counseling provided. Case discussed with supervising physician Dr. Morales
--- NOTE | 2017-10-27 13:26 | ECG ---
Date Performed: 10/26/2017 Time Performed: 21:26:08 PTAGE: 42 years EKG: Sinus rhythm NORMAL ECG PREVIOUS TRACING : 10/26/2017 10.09 Since the previous tracing, no significant change noted DOCTOR: Diana Partida Interpretating Date/Time 10/27/2017 13:24:51
--- NOTE | 2017-10-27 14:49 | P.DS ---
<Oma Simpson W - Last Filed: 10/27/17 14:46> Date of admission: 10/26/17 06:45 Primary care physician: Pablito Arora Attending physician on discharge: Ousmane Morales Anticipated date of discharge: 10/27/17 Brief History from admission: 42-year-old female who presents with constant nonradiating epigastric pain nausea and nonbloody [id number] vomiting since 1 AM she denies any chest pain, shortness of breath, fevers, lightheadedness, dizziness, dysuria. She says she has felt cold this morning however. DS: Diagnosis - Discharge Diagnosis (1) Partial small bowel obstruction Status: Acute (2) Enteritis Status: Acute DS: Medications - Discharge Medications Prescriptions: ciprofloxacin HCl [Cipro] 500 mg PO BID 7 Days #14 tab metronidazole [Flagyl] 500 mg PO TID 7 Days #21 tab ondansetron HCl [Zofran] 4 mg PO Q6-8H PRN #10 tab PRN Reason: Nausea And Vomiting DS: Summary Hospital Course: //Gastroenteritis //Possible partial small bowel obstruction. -With leukocytosis of 20 on admission -> 12.5 (10/27) = Troponin 3 negative. = CT abdomen shows fluid distention of the more proximal small bowel loops with long segment transition in the region of the right and central abdomen. Could represent a focal enteritis with partial small bowel obstruction. = general surgery consulted, appreciate assistance. Discussed case with Renetta STROUD cleared for DC later today if patient able to tolerate PO intake = patient expresses that she does not want to stay in the hospital any longer, asking to be DC'd. Patient to follow up with PCP in [place] //Tobacco abuse. Cessation counseling provided. Case discussed with supervising physician Dr. Morales - Time Spent with Patient Total time spent providing and/or coordinating discharge services: Greater than 30 minutes - Quality: VTE Deep Vein Thrombosis/Pulmonary Embolism Present on Admission: No Exam Vital signs: Vital Signs 10/26/17 15:02 10/26/17 20:00 10/27/17 00:00 Temperature 98.0 F 98.2 F 97.7 F Pulse Rate 65 77 68 Respiratory Rate 19 18 18 Blood Pressure 118/80 109/60 130/63 Pulse Oximetry 97 99 99 10/27/17 04:00 10/27/17 08:00 10/27/17 12:00 Temperature 98 F 98.1 F 98.4 F Pulse Rate 65 68 62 Respiratory Rate 18 18 18 Blood Pressure 110/67 138/81 117/65 Pulse Oximetry 97 99 98 Intake & Output 10/26/17 10/27/17 10/27/17 18:59 06:59 18:59 Intake Total 4200 / 4200 300 / 300 100 / 100 Balance 4200 / 4200 300 / 300 100 / 100 Intake: IV 3600 / 3600 300 / 300 100 / 100 NS Inj 1,000 ML @ 100 mls/hr IV 2100 / 2100 .CONT .Q10H NICK Rx#:[id number] Cipro 400 MG/200 ML Inj 400 mg 200 / 200 200 / 200 In 200 ml @ 200 mls/hr IV.SIG Q12H NICK Rx#:[id number] Zosyn 4.5 GM Premix 4.5 gm In 200 / 200 100 ml @ 200 mls/hr IV.SIG Q6H NICK Rx#:[id number] NS Inj 1,000 ML @ Wide Open IV. 1000 / 1000 SIG BOLUS ONE Rx#:[id number] Flagyl 500 MG Inj 100 ML @ 100 100 / 100 100 / 100 100 / 100 mls/hr IV.SIG Q8H NICK Rx#: [id number] Oral 600 / 600 Other: # Voids 2 Date of Last Bowel Movement 10/25/17 10/25/17 10/27/17 Narrative: GENERAL: This is a well-nourished, well-developed patient, in no apparent distress. CARDIOVASCULAR: Regular rate and rhythm RESPIRATORY: Clear to auscultation. Breath sounds equal bilaterally. GASTROINTESTINAL: Abdomen soft, non-tender, nondistended. Normal active bowel sounds MUSCULOSKELETAL: Extremities without clubbing, cyanosis, or edema. NEURO: Alert & Oriented x4 to person, place, time, situation. Moves all ext x4 Results Procedures completed during hospitalization: None Labs on day of discharge: Labs from last 24 hours 10/27/17 10/27/17 10/26/17 03:58 03:58 23:55 WBC 12.5 H RBC 4.09 Hgb 12.5 D Hct 38.5 MCV 94.2 D MCH 30.7 MCHC 32.6 RDW 13.5 Plt Count 297 MPV 8.3 Neut % (Auto) 60.5 Lymph % (Auto) 29.5 [place] % (Auto) 7.4 Eos % (Auto) 2.3 Baso % (Auto) 0.3 Neut # (Auto) 7.6 Lymph # (Auto) 3.7 [place] # (Auto) 0.9 Eos # (Auto) 0.3 Baso # (Auto) 0.0 WBC Differential . Differential Comment Auto diff final Hematology Comments Sodium 143 Potassium 3.7 Chloride 110 H Carbon Dioxide 25.2 Anion Gap 8 BUN 8 Creatinine 0.73 Estimated GFR 87 L Random Glucose 99 Calcium 8.0 L D Total Bilirubin 0.4 AST 14 L ALT 14 Alkaline Phosphatase 48 Troponin I Less than 0.02 L Total Protein 5.8 L D Albumin 3.1 L D 10/26/17 18:02 WBC RBC Hgb Hct MCV MCH MCHC RDW Plt Count MPV Neut % (Auto) Lymph % (Auto) [place] % (Auto) Eos % (Auto) Baso % (Auto) Neut # (Auto) Lymph # (Auto) [place] # (Auto) Eos # (Auto) Baso # (Auto) WBC Differential Differential Comment Hematology Comments Sodium Potassium Chloride Carbon Dioxide Anion Gap BUN Creatinine Estimated GFR Random Glucose Calcium Total Bilirubin AST ALT Alkaline Phosphatase Troponin I Less than 0.02 L Total Protein Albumin - Impressions ITS Impressions Abdomen/Pelvis CT 10/26/17 03:57 CONCLUSION: 1. There is some fluid distention of the more proximal small bowel loops with a long segment transition in the region of the right and central abdomen. No discrete mass lesion. Findings could represent a focal enteritis with partial small bowel obstruction. 2. Small amount of free fluid in the deep pelvis. Again, nonspecific and could be related to the phase of menses. 3. Appendix is clearly identified and is radiographically normal Chest X-Ray 10/26/17 03:57 CONCLUSION: No acute cardiopulmonary process. <Ousmane Morales - Last Filed: 10/27/17 15:35> Date of admission: 10/26/17 06:45 Primary care physician: Pablito Arora DS: Diagnosis - Discharge Diagnosis (1) Partial small bowel obstruction Status: Acute (2) Enteritis Status: Acute DS: Summary - Time Spent with Patient Total time spent providing and/or coordinating discharge services: Exam Vital signs: Vital Signs 10/26/17 20:00 10/27/17 00:00 10/27/17 04:00 Temperature 98.2 F 97.7 F 98 F Pulse Rate 77 68 65 Respiratory Rate 18 18 18 Blood Pressure 109/60 130/63 110/67 Pulse Oximetry 99 99 97 10/27/17 08:00 10/27/17 12:00 Temperature 98.1 F 98.4 F Pulse Rate 68 62 Respiratory Rate 18 18 Blood Pressure 138/81 117/65 Pulse Oximetry 99 98 Intake & Output 10/26/17 10/27/17 10/27/17 18:59 06:59 18:59 Intake Total 4200 / 4200 300 / 300 100 / 100 Balance 4200 / 4200 300 / 300 100 / 100 Intake: IV 3600 / 3600 300 / 300 100 / 100 NS Inj 1,000 ML @ 100 mls/hr IV 2100 / 2100 .CONT .Q10H NICK Rx#:[id number] Cipro 400 MG/200 ML Inj 400 mg 200 / 200 200 / 200 In 200 ml @ 200 mls/hr IV.SIG Q12H NICK Rx#:[id number] Zosyn 4.5 GM Premix 4.5 gm In 200 / 200 100 ml @ 200 mls/hr IV.SIG Q6H NICK Rx#:[id number] NS Inj 1,000 ML @ Wide Open IV. 1000 / 1000 SIG BOLUS ONE Rx#:[id number] Flagyl 500 MG Inj 100 ML @ 100 100 / 100 100 / 100 100 / 100 mls/hr IV.SIG Q8H NICK Rx#: [id number] Oral 600 / 600 Other: # Voids 2 Date of Last Bowel Movement 10/25/17 10/25/17 10/27/17 Results Labs on day of discharge: Labs from last 24 hours 10/27/17 10/27/17 10/26/17 03:58 03:58 23:55 WBC 12.5 H RBC 4.09 Hgb 12.5 D Hct 38.5 MCV 94.2 D MCH 30.7 MCHC 32.6 RDW 13.5 Plt Count 297 MPV 8.3 Neut % (Auto) 60.5 Lymph % (Auto) 29.5 [place] % (Auto) 7.4 Eos % (Auto) 2.3 Baso % (Auto) 0.3 Neut # (Auto) 7.6 Lymph # (Auto) 3.7 [place] # (Auto) 0.9 Eos # (Auto) 0.3 Baso # (Auto) 0.0 WBC Differential . Differential Comment Auto diff final Hematology Comments Sodium 143 Potassium 3.7 Chloride 110 H Carbon Dioxide 25.2 Anion Gap 8 BUN 8 Creatinine 0.73 Estimated GFR 87 L Random Glucose 99 Calcium 8.0 L D Total Bilirubin 0.4 AST 14 L ALT 14 Alkaline Phosphatase 48 Troponin I Less than 0.02 L Total Protein 5.8 L D Albumin 3.1 L D 10/26/17 18:02 WBC RBC Hgb Hct MCV MCH MCHC RDW Plt Count MPV Neut % (Auto) Lymph % (Auto) [place] % (Auto) Eos % (Auto) Baso % (Auto) Neut # (Auto) Lymph # (Auto) [place] # (Auto) Eos # (Auto) Baso # (Auto) WBC Differential Differential Comment Hematology Comments Sodium Potassium Chloride Carbon Dioxide Anion Gap BUN Creatinine Estimated GFR Random Glucose Calcium Total Bilirubin AST ALT Alkaline Phosphatase Troponin I Less than 0.02 L Total Protein Albumin - Impressions ITS Impressions Abdomen/Pelvis CT 10/26/17 03:57 CONCLUSION: 1. There is some fluid distention of the more proximal small bowel loops with a long segment transition in the region of the right and central abdomen. No discrete mass lesion. Findings could represent a focal enteritis with partial small bowel obstruction. 2. Small amount of free fluid in the deep pelvis. Again, nonspecific and could be related to the phase of menses. 3. Appendix is clearly identified and is radiographically normal Chest X-Ray 10/26/17 03:57 CONCLUSION: No acute cardiopulmonary process. Discharge Plan - Discharge Order Discharge Orders: Discharge Order (Routine); Ordered 10/27/17 Ordered By: Oma Simpson - Discharge Details Anticipated Discharge Date: 10/27/17 - Physicians Team Attending Provider: Ousmane Morales Other Providers: Parveen Hahn MD
== END 2017-10-27 16:49 | disposition home or self-care (01) ==
LOC: NEPC 03:08 → NEDA 06:45 → N07 11:20
PROVIDERS: ADMIT Internal Medicine; ATTEND Internal Medicine